=== PATIENT | female | born 1955 | race Caucasian/White ===

== ENCOUNTER 2016-07-15 21:27 | Emergency (ER) | payer OTHER ==
[~2016-07-15] VITALS: Ht 154.9 cm; Wt 58.5 kg
[~2016-07-15 21:27] MED LIST: CLON-379 PO; HYD25 PO
[2016-07-15 21:29] VITALS: Ht 154.9 cm; Wt 58.5 kg
[2016-07-15 22:21] LABS: URINE BLOOD (Dip) POC 2+ (NEGATIVE)
--- NOTE | 2016-07-15 22:45 | ERD ---
ER Documentation Chief Complaint Date/Time DATE: 07/15/16 TIME: 22:39 Chief Complaint PAINFUL URINATION STARTED TODAY HPI 61-year-old female with a history of hypertension presenting with complaints of feeling a mass in her vaginal area that was not there yesterday. She states that she has had a cold recently but for the past day she has had some difficulty with urination. She states that she feels like she frequently has to go, but there is no burning with urination. She denies any associated abdominal pain, fever, chills, nausea, vomiting. She has no associated vaginal discharge or bleeding. She states that while she was washing her vaginal area today, she felt a little lump and got concerned that it was blocking her urethra. ROS All systems reviewed and are negative except as per history of present illness. Medications Home Meds Active Scripts Clonidine Hcl* (Clonidine Hcl*) 0.1 Mg Tab, 0.1 MG PO BID, #60 TAB Prov:LLOYD SALDIVAR MD 09/15/15 Hydrochlorothiazide* (Hydrochlorothiazide*) 25 Mg Tab, 25 MG PO DAILY, #30 TAB Prov:LLOYD SALDIVAR MD 09/15/15 Hydrochlorothiazide* (Hydrochlorothiazide*) 25 Mg Tab, 25 MG PO DAILY, #30 TAB Prov:ALYSSA LLOYD 09/03/15 Clonidine Hcl* (Clonidine Hcl*) 0.1 Mg Tab, 0.1 MG PO Q4H Y for hypertension, # 20 TAB Take one tablet by mouth if systolic blood pressure is greater than 150mmHg. Prov:ALYSSA LLOYD 09/03/15 Reported Medications [None ] No Conflict Check 01/20/13 [none] No Conflict Check 10/25/10 Allergies Allergies: Coded Allergies: No Known Allergy (Unverified , 07/15/16) PMhx/Soc History of Surgery: Yes (appendectomy, ) Anesthesia Reaction: No Hx Neurological Disorder: No Hx Respiratory Disorders: No Hx Cardiac Disorders: Yes (htn) Hx Psychiatric Problems: No Hx Miscellaneous Medical Probl: No Hx Alcohol Use: No Hx Substance Use: No Hx Tobacco Use: No Smoking Status: Never smoker FmHx Family History: No diabetes Physical Exam Vitals Vital Signs Date Time Temp Pulse Resp B/P Pulse Ox O2 Delivery O2 Flow Rate FiO2 07/15/16 21:29 97.8 97 18 176/99 100 Physical Exam Const: Well-appearing, no apparent distress Head: Atraumatic Eyes: Normal Conjunctiva ENT: Normal External Ears, Nose and Mouth. Neck: Full range of motion..~ No meningismus. Resp: Clear to auscultation bilaterally Cardio: Regular rate and rhythm, no murmurs Abd: Soft, non tender, no masses, non distended. Normal bowel sounds Skin: No petechiae or rashes : No flank tenderness, external vagina normal, posterior aspect of the urethra with nodular swelling, soft to palpation, with no overlying erythema or tenderness. No urethral discharge or bleeding. Ext: No cyanosis, trace bilateral lower extremity edema Neur: Awake and alert Psych: Normal Mood and Affect Results 24 hrs Laboratory Tests Test 07/15/16 22:21 Bedside Urine Blood 2+ Bedside Urine Glucose (UA) Negative Bedside Urine Ketones (LAB) Negative Bedside Urine Leukocyte Esterase (L 1+ Bedside Urine Nitrite (LAB) Negative Bedside Urine Protein (LAB) Negative Bedside Urine pH (LAB) 7.0 Procedures/MDM The patient is presenting with a possible mass felt in her vaginal area. This mass does not seem to be obstructing her urethra. I suspect the mass is secondary to either a urethral prolapse versus a urethral caruncle versus urethral diverticulum. Postvoid residual was 25 cc, so there is no evidence of urethral obstruction. Patient denies any dysuria but her urine dip showed 1+ leuk esterase. Urine was sent for culture. I reassured the patient that there is no evidence of obstruction at this time, however if her symptoms get worse or she is unable to urinate, she is to return back to the ER immediately. I recommended she call her final cleaner tomorrow to make an appointment for further evaluation of this mass. Patient feels comfortable with the plan and agrees to follow-up within the next 1-2 days. Departure Diagnosis: Primary Impression: Mass of urethra Condition: Stable Patient Instructions: What Is Pelvic Organ Prolapse? Additional Instructions: Return to the ER if you are unable to urinate or have any worsening symptoms. Follow-up with a final cleaner in the next 1-2 days. I suspect you have either a urethral prolapse or urethral caruncle. ANSON NERI MD Jul 15, 2016 22:45
[2016-07-15 22:55] VITALS: BP 167/83; PULSE 90; RESP 18; TEMP 98.1
== END 2016-07-15 22:55 | disposition home or self-care (01) ==
LOC: FTE 21:27
DX: N36.8 Other specified disorders of urethra (principal); I10 Essential (primary) hypertension
CPT/HCPCS: 81003; 87086; 99282